=== PATIENT | male | born 1965 | race Caucasian/White ===

== ENCOUNTER 2018-12-20 07:55 | Outpatient (CLI) | payer OTHER ==
--- NOTE | 2018-12-20 09:03 | RAD ---
CERVICAL SPINE 6 VIEWS: Date: 12/20/18 COMPARISON: CT cervical spine dated 11/14/18. FINDINGS: Again seen is an ACDF at C6-7 with solid osseous incorporation. Wedge deformity involving C5 with sli ght anterior translation of C4 on C5 is stable. No abnormal translational motion is seen on the flexi on or extension lateral projection. There is advanced disc degenerative disease at C3-4, C5-6, and C7-T1. Prevertebral soft tissues are n ormal appearing. Lateral masses are symmetric. Lung apices are clear. IMPRESSION: Stable ACDF at C6-7 with solid osseous incorporation of bone graft. Stable wedge compression abnormal ity of C5 with ankylosis of the facet complex at C4-5. There is slight anterior translation of C4 on C5. There is no abnormal translational motion demonstrated. There is moderate adjacent segment degene ration at C3-4, C5-6, and C7-T1. POS: [facility]
== END 2018-12-20 07:56 | disposition home or self-care (01) ==
LOC: TBSIIMAG 07:55
PROVIDERS: ATTEND Neurological Surgery
DX: M47.12 Other spondylosis with myelopathy, cervical region (principal); M47.22 Other spondylosis with radiculopathy, cervical region; M48.02 Spinal stenosis, cervical region; M47.23 Other spondylosis with radiculopathy, cervicothoracic region; M43.22 Fusion of spine, cervical region; Z98.1 Arthrodesis status
CPT/HCPCS: 72050

== ENCOUNTER 2019-02-11 20:07 | Inpatient (IN) | payer OTHER, SELFPAY ==
[2019-02-11] MEDS ORDERED: Rocuronium Bromide 10 MG/ML (10ML VIAL) ONE (20:12)
[2019-02-11] MEDS ORDERED: fentaNYL Citrate/PF 2,000 MCG in Sodium Chloride 0.9% 60 ML IV SCH (20:18)
[2019-02-11] MEDS ORDERED: Propofol 1,000 MG/100 ML VIAL IV ONE (20:29)
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
[2019-02-11 20:51] LABS: #Basophils 0.1 thou/uL (0.0-0.2); #Eosinphils 0.1 thou/uL (0.0-0.7); #Lymphocytes 2.1 thou/uL (1.20-3.40); #Monocytes 0.6 thou/uL (0.11-0.59); #Neutrophils 3.7 thou/uL (1.40-6.50); %Eosinophils 1.3 % (0.0-10.0); %Lymphocytes 32.2 % (21.0-51.0); %Monocytes 9.7 % (0.0-10.0); %Neutrophils 55.7 % (42.0-75.0); Hemoglobin 13.8 g/dL (14.0-18.0); Mean Corpuscular HGB CONC 34.2 g/dL (32.0-36.0); Mean Corpuscular Hemoglobin 31.7 pg (27.0-31.0); Mean Corpuscular Volume 92.6 fL (78.0-98.0); Mean Platelet Volume 8.3 fL (7.4-10.4); Platelet Count 245 thou/uL (130-400); RBC Distribution Width 11.9 % (11.5-14.5); Red Blood Cell (RBC) Count 4.37 mill/uL (4.70-6.10); White Blood Cell (WBC) Count 6.6 thou/uL (4.8-10.8)
[2019-02-11 20:53] LABS: Acetaminophen Less than 6.0 mcg/mL (10.0-30.0); Alcohol 245 mg/dL (Less than 10); Salicylate Less than 8.0 mg/dL (15.0-30.0)
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
[2019-02-11 21:05] LABS: ALT (SGPT) 14 U/L (8-55); AST (SGOT) 21 U/L (5-34); Albumin 4.6 g/dL (3.5-5.0); Alkaline Phosphatase 111 U/L (40-150); Anion Gap 16 mmol/L (10-20); BUN (Urea Nitrogen) 20 mg/dL (8.4-25.7); Bilirubin, Total 0.7 mg/dL (0.2-1.2); Calc. Creatinine Clearance 0 mL/min (70-130); Calcium 8.8 mg/dL (7.8-10.44); Carbon Dioxide 22 mmol/L (22-29); Chloride 109 mmol/L (98-107); Estimated GFR-MDRD 82; Globulin 2.6 g/dL (2.4-3.5); Glucose 108 mg/dL (70-105); Magnesium 2.4 mg/dL (1.6-2.6); Protein, Total 7.2 g/dL (6.0-8.3); Sodium 144 mmol/L (136-145)
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
[2019-02-11 21:26] LABS: Actual Bicarbonate (HCO3a) 21.7 mEq/L (22-28); Analyzer IN Cardio ER; Base Excess (BEa) -2.7 mEq/L (-2.0 to +3.0); CO2 Tension 36.9 mmHg (35.0-45.0); Calcium, Ionized 1.04 mmol/L (1.12-1.30); Carboxyhemoglobin (COHb) 0.1 gm% (0.0-3.0); Hemoglobin (Hb) 13.8 g/dL (14.0-18.0); O2 Tension (PaO2) 119.7 mmHg (80.0-100.0); Potassium - ABG Lab 3.17 mmol/L (3.70-5.30); pH, Arterial 7.39 (7.35-7.45)
[2019-02-11 21:31] LABS: ALV-art Gradient 190.675 (0-20); Puncture Site RRA
[2019-02-11 22:08] LABS: Amphetamine Not Detected (NotDetected); Barbiturates Screen Not Detected (NotDetected); Benzodiazepine Screen Not Detected (NotDetected); Cocaine Metabolite Screen Not Detected (NotDetected); Medtox Control Line Valid? VALID (VALID); Medtox Reader # READER 1; Methadone Not Detected (NotDetected); Methamphetamine Not Detected (NotDetected); Opiate Screen Not Detected (NotDetected); Oxycodone Screen Not Detected (NotDetected); Phencyclidine (PCP) Not Detected (NotDetected); THC/Cannabinoid Screen Not Detected (NotDetected); Tricyclic Screen Not Detected (NotDetected)
[2019-02-11] MEDS ORDERED: cefTRIAXone\\ROCEPHIN 2 GM VIAL ONE (22:10)
[2019-02-11] MEDS ORDERED: Sodium Chloride 0.9% 100 ML ONE (22:10)
[2019-02-11 22:48] LABS: Bilirubin Negative (Negative); Blood, Urine Negative (Negative); Clarity CLEAR (Clear); Glucose, Urine (Dipstick) 250 mg/dL (Negative); Leukocyte Negative (Negative); Nitrite Negative (Negative); Protein, Urine (Dipstick) Trace mg/dL (Neg-Trace); Specific Gravity, Urine 1.025 (1.002-1.036); Urobilinogen 0.2 mg/dL (0.2-1.0)
[2019-02-11] MEDS ORDERED: Ondansetron ODT 4 MG TAB PO PRN (23:07)
[2019-02-11] MEDS ORDERED: Acetaminophen 325 MG TAB PO PRN (23:07)
[2019-02-12] VITALS: BMI 33.0
[2019-02-12] MEDS: cloNIDine 0.1 MG TAB PO SCH ×4 (00:55→17:53)
[2019-02-12] MEDS ORDERED: Propofol BOLUS 1,000 MG/100 ML VIAL IV PRN (01:17)
[2019-02-12] MEDS ORDERED: Propofol 1,000 MG/100 ML VIAL IV PRN (01:17)
[2019-02-12] MEDS ORDERED: Fentanyl BOLUS 250 ML IVPB PRN (01:17)
[2019-02-12] MEDS ORDERED: Lorazepam 2 MG/ML VIAL SLOW IVP PRN (01:17)
[2019-02-12] MEDS ORDERED: Morphine 2 MG/ML SYRINGE SLOW IVP PRN (01:17)
[2019-02-12] MEDS ORDERED: fentaNYL Citrate/PF 2,000 MCG in Sodium Chloride 0.9% 60 ML IV SCH (01:17)
[2019-02-12] MEDS ORDERED: DISCONTINUE PREVIOUS NARCOTIC PAIN MEDICATIONS AND BENZODIAZEPINES FS SCH (01:17)
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
[2019-02-12] MEDS: Piperacillin/Tazobactam 4.5 GM in Sodium Chloride 0.9% 100 ML IVPB SCH ×3 (02:05→17:53)
[2019-02-12 02:34] LABS: Lactic Acid 2.7 mmol/L (0.5-2.2)
[2019-02-12] MEDS: Sodium Chloride 0.9% 1,000 ML IV SCH ×3 (03:40→17:54)
[2019-02-12 04:43] LABS: #Eosinphils 0.1 thou/uL (0.0-0.7); #Lymphocytes 1.8 thou/uL (1.20-3.40); #Monocytes 0.6 thou/uL (0.11-0.59); #Neutrophils 4.2 thou/uL (1.40-6.50); %Basophils 0.4 % (0.0-1.0); %Eosinophils 1.2 % (0.0-10.0); %Lymphocytes 26.6 % (21.0-51.0); %Monocytes 8.2 % (0.0-10.0); %Neutrophils 63.5 % (42.0-75.0); Hemoglobin 12.3 g/dL (14.0-18.0); Mean Corpuscular HGB CONC 34.1 g/dL (32.0-36.0); Mean Corpuscular Hemoglobin 31.5 pg (27.0-31.0); Mean Corpuscular Volume 92.4 fL (78.0-98.0); Mean Platelet Volume 8.4 fL (7.4-10.4); Platelet Count 216 thou/uL (130-400); RBC Distribution Width 11.9 % (11.5-14.5); Red Blood Cell (RBC) Count 3.89 mill/uL (4.70-6.10); White Blood Cell (WBC) Count 6.6 thou/uL (4.8-10.8)
[2019-02-12 05:01] LABS: Anion Gap 14 mmol/L (10-20); BUN (Urea Nitrogen) 13 mg/dL (8.4-25.7); Calc. Creatinine Clearance 148 mL/min (70-130); Carbon Dioxide 19 mmol/L (22-29); Chloride 114 mmol/L (98-107); Estimated GFR-MDRD Greater than 90; Glucose 84 mg/dL (70-105); Potassium 3.1 mmol/L (3.5-5.1); Sodium 144 mmol/L (136-145)
[2019-02-12] MEDS ORDERED: Gabapentin 300 MG CAP PO SCH (09:00)
[2019-02-12] MEDS ORDERED: Prevnar 13-Val Conj/PF 0.5 ML SYRINGE IM ONE (09:00)
[2019-02-12] MEDS: Enoxaparin Sodium 40 MG/0.4 ML SYRINGE SC SCH (09:17)
[2019-02-12] MEDS: Folic Acid 1 MG TAB PO SCH (09:17)
[2019-02-12] MEDS: Tamsulosin HCl 0.4 MG CAP PO SCH (09:17)
[2019-02-12] MEDS: Gabapentin 300 MG CAP PO SCH ×3 (09:17→21:00)
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
[2019-02-12] MEDS: Ondansetron PF 4 MG/2 ML Vial IVP PRN ×2 (12:44→18:07)
[2019-02-12] MEDS ORDERED: Naloxone HCl 0.4 mg/ml Vial ONE (16:05)
--- NOTE | 2019-02-12 17:29 | RAD ---
Radiograph right elbow 4 views: 02/12/2019 HISTORY: 53-year-old male with right elbow pain FINDINGS: Soft tissue edema at the medial aspect of elbow. Tiny enthesophytes at dorsal surface of the olecrano n process and at coronoid process. Joint spaces are maintained without erosions. No destructive osseous lesion identified. No evidence of fracture or dislocation. No radiopaque foreign body. IMPRESSION: Soft tissue edema at medial aspect of elbow. No fracture identified.
--- NOTE | 2019-02-12 19:23 | ULT ---
Ultrasound Doppler duplex venous right upper extremity: HISTORY: Right upper extremity edema TECHNIQUE: Grayscale, color-flow, and spectral analysis, of major veins of right upper extremity FINDINGS: Soft tissue edema in the right arm and forearm. In the distal arm just proximal to the elbow, the cephalic and basilic veins are difficult to visuali ze because of the small caliber of those vessels there and the severe surrounding edema. There is no thrombosis of the radial, ulnar, brachial, proximal cephalic, proximal basilic, axillary, subclavian, or internal jugular, veins. IMPRESSION: 1. Extensive soft tissue edema of the right upper extremity. 2. Portions of cephalic and basilic veins not well visualized for reasons given above. 3. No thrombosis of the rest of the veins.
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
[2019-02-12] MEDS: HYDROcodone/Acetaminophen 5/325 mg Tablet PO PRN (20:57)
[2019-02-13] MEDS: HYDROcodone/Acetaminophen 5/325 mg Tablet PO PRN ×5 (00:54→23:53)
[2019-02-13] MEDS: cloNIDine 0.1 MG TAB PO SCH ×5 (00:54→23:09)
[2019-02-13] MEDS: Sodium Chloride 0.9% 1,000 ML IV SCH ×2 (02:49→11:56)
[2019-02-13] MEDS: Piperacillin/Tazobactam 4.5 GM in Sodium Chloride 0.9% 100 ML IVPB SCH ×3 (02:49→16:29)
[2019-02-13] MEDS: Enoxaparin Sodium 40 MG/0.4 ML SYRINGE SC SCH (08:13)
[2019-02-13] MEDS: Folic Acid 1 MG TAB PO SCH (08:13)
[2019-02-13] MEDS: Tamsulosin HCl 0.4 MG CAP PO SCH (08:13)
[2019-02-13] MEDS: Gabapentin 300 MG CAP PO SCH ×3 (08:15→20:48)
[2019-02-13] MEDS ORDERED: Potassium Chloride 20 MEQ TAB PO SCH ×2 (09:15→11:45)
[2019-02-13 09:44] LABS: Anion Gap 12 mmol/L (10-20); BUN (Urea Nitrogen) 10 mg/dL (8.4-25.7); Calc. Creatinine Clearance 152 mL/min (70-130); Calcium 7.9 mg/dL (7.8-10.44); Carbon Dioxide 23 mmol/L (22-29); Chloride 107 mmol/L (98-107); Estimated GFR-MDRD Greater than 90; Glucose 120 mg/dL (70-105); Sodium 139 mmol/L (136-145)
[2019-02-13] MEDS: Ondansetron PF 4 MG/2 ML Vial IVP PRN ×2 (10:39→16:23)
--- NOTE | 2019-02-13 11:32 | PDOC.PN ---
- Subjective Encounter Start Date: 02/13/19 Encounter Start Time: 11:29 Mr. Moreno was seen today in follow-up of respiratory failure and altered mental status. He is now extubated, alert and oriented. He notes some soreness in his right upper extremity, otherwise no complaints. - Objective Resuscitation Status - Order Detail: 02/11/19 23:07 Resuscitation Status Routine Resuscitation Status: FULL: Full Resuscitation MAR Reviewed: Yes Vital Signs & Weight: Vital Signs (12 hours) Temp BP Pulse Ox 02/13/19 07:50 93 L 02/13/19 06:01 133/84 02/13/19 04:00 98.4 F 02/13/19 00:54 131/77 02/13/19 00:00 98.7 F Weight Weight 229 lb 15.074 oz Most Recent Monitor Data Heart Rate from ECG 59 NIBP 118/70 NIBP BP-Mean 86 Respiration from ECG 14 SpO2 96 I&O: 02/12/19 02/13/19 02/14/19 06:59 06:59 06:59 Intake Total 851.8 4591 300 Output Total 605 1555 225 Balance 246.8 3036 75 Result Diagrams: 02/12/19 04:23 02/13/19 09:08 Phys Exam - Physical Examination HEENT: PERRLA Respiratory: no wheezing, no rales, no rhonchi, clear to auscultation bilateral Cardiovascular: RRR, no significant murmur, no rub Gastrointestinal: soft, non-tender, no distention, positive bowel sounds Musculoskeletal: no edema, pulses present Dx/Plan (1) Toxic metabolic encephalopathy Code(s): G92 - TOXIC ENCEPHALOPATHY Status: Acute (2) Alcohol intoxication Status: Acute (3) Aspiration pneumonia Code(s): J69.0 - PNEUMONITIS DUE TO INHALATION OF FOOD AND VOMIT Status: Acute - Plan * Toxic metabolic encephalopathy-due to alcohol intoxication- improved * Aspiration Pneumonia- continue Zosyn * He is stable for transition out of the ICU, and possibly even stable for discharge soon.
[2019-02-13] MEDS: Potassium Chloride 20 MEQ TAB PO SCH (16:27)
--- NOTE | 2019-02-13 19:57 | PRG ---
DATE OF SERVICE: 02/13/2019 SUBJECTIVE: Mr. Moreno has no new complaints today other than right upper extremity swelling. An ultrasound done yesterday afternoon that did not show a clot. He had an elbow x-ray that did not show fracture. He did have an IV when he came in that arm, and I suspect he had an IV infiltration. I have asked the nurses to hang his arm in a stocking sleeve to decrease the swelling. He says he is willing to do this. His wants to take him home, "because he does not have any insurance." I have explained to her that the bill is probably already maxed out and one more day in the hospital make sure he can become ambulatory is not an unreasonable thing to do. The hospitalist also does not feel comfortable discharging him today from the ICU. PHYSICAL EXAMINATION: VITAL SIGNS: He is afebrile, heart rate 65, blood pressure 99/58, and respiratory rate 18. HEAD AND NECK: Unremarkable. MUSCULOSKELETAL: His hand is warm. He has no pain in his arm, albeit he has limited ability to flex his elbow. Left upper extremity is normal. LUNGS: Clear. HEART: Regular rhythm. ABDOMEN: Soft. EXTREMITIES: Without edema. NEUROLOGIC: Nonfocal. LABORATORY DATA: Sodium 139, potassium 3, chloride 107, bicarb 23, BUN 10, and creatinine 0.81. IMPRESSION AND PLAN: 1. Status post intubation for altered mental status, related to alcohol intoxication. 2. History of aspiration, but no clear evidence of pneumonia. His abnormal radiograph presentation argues this is more of a chemical pneumonitis. It is reasonable to switch him to p.o. antimicrobial therapy at the time of discharge. Augmentin would be a reasonable choice. 3. Heavy alcohol use with alcohol intoxication. 4. He can transfer out of the Critical Care Unit. We will sign off. Job ID: [id number]
[2019-02-14] MEDS: Piperacillin/Tazobactam 4.5 GM in Sodium Chloride 0.9% 100 ML IVPB SCH (02:31)
[2019-02-14] MEDS: cloNIDine 0.1 MG TAB PO SCH ×3 (05:41→17:03)
[2019-02-14 06:26] LABS: Anion Gap 9 mmol/L (10-20); BUN (Urea Nitrogen) 9 mg/dL (8.4-25.7); Calc. Creatinine Clearance 134 mL/min (70-130); Calcium 8.7 mg/dL (7.8-10.44); Carbon Dioxide 27 mmol/L (22-29); Chloride 108 mmol/L (98-107); Estimated GFR-MDRD 85; Glucose 91 mg/dL (70-105); Potassium 4.2 mmol/L (3.5-5.1); Sodium 140 mmol/L (136-145)
[2019-02-14] MEDS: Folic Acid 1 MG TAB PO SCH (08:34)
[2019-02-14] MEDS: Gabapentin 300 MG CAP PO SCH ×2 (08:34→16:14)
[2019-02-14] MEDS: HYDROcodone/Acetaminophen 5/325 mg Tablet PO PRN (08:35)
[2019-02-14] MEDS: Enoxaparin Sodium 40 MG/0.4 ML SYRINGE SC SCH (08:35)
[2019-02-14] MEDS: Potassium Chloride 20 MEQ TAB PO SCH ×2 (08:35→16:14)
[2019-02-14] MEDS ORDERED: Amoxicillin/Potassium Clav 875 MG TAB PO SCH (09:00)
[2019-02-14] MEDS ORDERED: Thiamine 100 MG TAB PO SCH (09:00)
--- NOTE | 2019-02-14 13:52 | PDOC.PN ---
- Subjective Encounter Start Date: 02/14/19 Encounter Start Time: 13:50 Ms. Moreno was seen today in follow-up of alcohol intoxication with respiratory distress. He is awake and alert and appropriate. He says the pain and swelling in the left arm has improved. Whena asked about alcohol use, he says he does not drink and has not drank recently. - Objective Resuscitation Status - Order Detail: 02/11/19 23:07 Resuscitation Status Routine Resuscitation Status: FULL: Full Resuscitation MAR Reviewed: Yes Vital Signs & Weight: Vital Signs (12 hours) Temp Pulse Resp BP BP BP Pulse Ox 02/14/19 11:55 98.8 F 68 16 125/76 94 L 02/14/19 11:51 125/76 02/14/19 11:05 98.2 F 68 18 143/88 H 94 L 02/14/19 08:00 95 02/14/19 07:12 98 F 68 18 132/83 95 02/14/19 05:41 109/68 02/14/19 04:07 97.7 F 60 16 109/68 97 Weight Weight 229 lb 15.074 oz Most Recent Monitor Data Heart Rate from ECG 66 NIBP 115/68 NIBP BP-Mean 83 Respiration from ECG 13 SpO2 95 I&O: 02/13/19 02/14/19 02/15/19 06:59 06:59 06:59 Intake Total 4591 1670 Output Total 1555 2575 Balance 3036 -905 Result Diagrams: 02/12/19 04:23 02/14/19 05:36 Phys Exam - Physical Examination HEENT: PERRLA Respiratory: no wheezing, no rales, no rhonchi, clear to auscultation bilateral Cardiovascular: RRR, no significant murmur, no rub Gastrointestinal: soft, non-tender, no distention, positive bowel sounds Musculoskeletal: pulses present, edema present + swelling in the left upper extremity, improved + good radial and ulnar pulses Neurological: non-focal, normal sensation Dx/Plan (1) Toxic metabolic encephalopathy Code(s): G92 - TOXIC ENCEPHALOPATHY Status: Acute (2) Alcohol intoxication Status: Acute (3) Aspiration pneumonia Code(s): J69.0 - PNEUMONITIS DUE TO INHALATION OF FOOD AND VOMIT Status: Acute - Plan * Encephalopathy due to alcohol intoxication- improved * Aspiration- will change to Augmentin * Ambulate * He is stable for discharge home if he is able to ambulate well.
[2019-02-14 15:18] VITALS: BP 110/67; TEMP 98.7
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
== END 2019-02-14 17:31 | disposition home or self-care (01) | DRG 896 ==
LOC: ERS 20:07 → CCU 21:34 → T4-A 02-13 13:56
PROVIDERS: ADMIT Hospitalist; ATTEND Hospitalist
PROC: 0BH17EZ Insertion of Endotracheal Airway into Trachea, Via Natural or Artificial Opening (ICD-10-PCS; principal; 2019-02-11)
DX: F10.129 Alcohol abuse with intoxication, unspecified (principal); J69.0 Pneumonitis due to inhalation of food and vomit; G92 Toxic encephalopathy; J96.00 Acute respiratory failure, unspecified whether with hypoxia or hypercapnia; C81.90 Hodgkin lymphoma, unspecified, unspecified site; E87.2 Acidosis; I48.91 Unspecified atrial fibrillation; Y93.01 Activity, walking, marching and hiking; Z89.022 Acquired absence of left finger(s); V89.2XXA Person injured in unspecified motor-vehicle accident, traffic, initial encounter; Z98.890 Other specified postprocedural states; Z87.81 Personal history of (healed) traumatic fracture; Z88.2 Allergy status to sulfonamides
CPT/HCPCS: 36415; 36416; 70450; 71045; 71260; 72125; 74177; 80048; 80053; 80306; 80307; 81003; 82550; 82805; 83605; 83735; 83930; 84443; 84484; 85025; 87040; 90471; 90670; 93005; 94002; 94003; G0009; J0696; J1650; J2270; J2310; J2405; J2543; J2704; J3010; J3411; J3490; J7050